=== PATIENT | female | born 1950 | race Caucasian/White ===

== ENCOUNTER → 2021-04-18 | Outpatient (CLI) | payer BC, MEDICARE ==
[~2021-04-18] MED LIST: ACET-897 PO; ALBU83IN INH; ASPI81TA26 PO; ATOR1TAB19 PO; CAL-TAB2 PO; FERR325T3 PO; FLON27.5 NARES; HOME MED LIST COMPLETE! XX SCH; HYDR-3490 PO; LAXA15TA PO; LIDOCAINE 1% MDV 20ML VIAL As Ordered ONE; METO50TA7 PO; MIRA0.5T PO; PRAM0.754 PO; VITATAB74 PO
[2021-04-18 09:41] LABS: BASO % 0.4 % (0.0-1.0); EOS # 0.1 10^3/uL (0.0-0.5); EOS % 1.2 % (0.0-3.0); HEMATOCRIT 37.2 % (36.0-47.0); HEMOGLOBIN 11.7 g/dl (12.0-15.5); LYMPH # 2.1 10^3/uL (1.5-5.0); LYMPH % 30.9 % (24.0-44.0); MEAN CORPUSCULAR HGB CONC 31.5 g/dl (32.0-36.5); MEAN CORPUSCULAR VOLUME 98.7 fl (80.0-96.0); MONO # 0.6 10^3/uL (0.0-0.8); MONO % 8.1 % (2.0-8.0); NEUTROPHILS % 59.1 % (36.0-66.0); PLATELET COUNT, AUTOMATED 246 10^3/uL (150-450); RED BLOOD COUNT 3.77 10^6/uL (4.00-5.40); WHITE BLOOD COUNT 6.8 10^3/uL (4.0-10.0)
[2021-04-18 11:15] VITALS: BP 106/78
--- NOTE | 2021-04-18 12:28 | REP ---
INDICATION: POST LEFT LUNG BIOPSY, 1 VIEW, PA EXPIRATION. COMPARISON: None. TECHNIQUE: Single view chest. FINDINGS: There is no pneumothorax status post left lung biopsy. Lobulated left lung mass is noted. The heart is normal in size. There is mild calcified plaque and thoracic aorta. IMPRESSION: No pneumothorax status post left lung biopsy. <Electronically signed by Rubén Tee > 04/18/21 [id number]
--- NOTE | 2021-04-18 17:03 | REP ---
INDICATION: LLL LUNG NODULE. COMPARISON: None. TECHNIQUE: Formed under the direct supervision of Dr. Tee. The patient has a history of a left lower lobe lung mass seen on a previous PET scan performed at [facility] on 03/05/2021. The risks and benefits of the procedure were explained to the patient and informed consent was obtained. The left lower lobe lung mass was localized using CT guidance. The skin was prepped and draped in a sterile fashion. 8 mL of 1% lidocaine was used as a local anesthetic. Using CT guidance a 19/20 gauge coaxial needle biopsy system was inserted and advanced into the mass. Five core biopsy samples were obtained and sent to the lab for analysis. Patient tolerated the procedure well and there were no immediate complications. After the appropriate amount to monitor convalescence the patient was discharged from the department. Estimated blood loss: Less than 1 mL FINDINGS: None IMPRESSION: CT-guided left lower lobe lung biopsy. <Electronically signed by Nasir Villanueva > 04/18/21 1608 <Electronically signed by Rubén Tee > 04/18/21 1704
== END ==
LOC: M IRPRO 09:06
PROVIDERS: ATTEND Internal Medicine Hematology & Oncology
DX: C34.32 Malignant neoplasm of lower lobe, left bronchus or lung (principal)